=== PATIENT | male | born 1970 | race Caucasian/White ===

== ENCOUNTER 2018-11-02 16:22 | Emergency (ER) | payer OTHER ==
[2018-11-02] MEDS: IBUPROFEN 800 MG TAB PO (19:22)
[2018-11-02] MEDS: BACITRACIN 0.5%/ZINC 28.35 GM OINT TOP (19:50)
[2018-11-02] MEDS: HYDROCODONE/APAP (5/325) TAB PO (23:32)
== END 2018-11-02 23:34 | disposition home or self-care (01) ==
LOC: FTE 16:22
DX: S62.101A Fracture of unspecified carpal bone, right wrist, initial encounter for closed fracture (principal); V23.9XXA Unspecified motorcycle rider injured in collision with car, pick-up truck or van in traffic accident, initial encounter
CPT/HCPCS: 29125; 73110-RT; 73130-RT; 73200; 73610-RT; 73630; 99284-25